=== PATIENT | male | born 1965 | race Two or more races ===

== ENCOUNTER 2023-10-20 18:41 | Emergency (ER) | payer BC ==
[~2023-10-20] VITALS: Ht 172.7 cm; Wt 98.5 kg
[2023-10-20 20:22] VITALS: BP 160/97; PULSE 93; RESP 14; O2SAT 96
[2023-10-20] MEDS ORDERED: INDO50CA82 PO (22:18)
[2023-10-20] MEDS ORDERED: COLC1TAB3 PO (22:18)
[2023-10-20] MEDS: predniSONE 20 MG TAB PO ONE (22:23)
[2023-10-20] MEDS: COLCHICINE 0.6 MG CAP PO ONE (22:24)
== END 2023-10-20 22:38 | disposition home or self-care (01) ==
LOC: ER 18:41
DX: M10.031 Idiopathic gout, right wrist (principal); I10 Essential (primary) hypertension; M19.90 Unspecified osteoarthritis, unspecified site; Z79.899 Other long term (current) drug therapy
CPT/HCPCS: 99283; J7512

== ENCOUNTER 2025-07-19 08:01 | Emergency (ER) | payer BC, OTHER ==
[~2025-07-19] VITALS: Ht 172.7 cm; Wt 86.0 kg
[~2025-07-19 08:01] MED LIST: COLC1TAB3 PO; INDO50CA82 PO
--- NOTE | 2025-07-19 08:28 | ED.PDOC ---
History of Present Illness HPI Comments A 59 YEAR OLD MALE PRESENTS TO THE ED WITH COMPLAINT OF ALLERGIC REACTION. PT STATES EARLIER THIS AM, HE TOOK PRESCRIBED AUGMENTIN FOR SKIN INFECTION. PT STATES THIS IS IS FIRST DOSE EARLIER THIS AM AT APPROX 0700. PT STATES SHORTLY AFTERWARDS, HE STARTED TO HAVE BILATERAL HAND AND FOOT SWELLING AND STARTED TO GET SHORT OF BREATH AND CALLED EMS. PT NOW IN THE ED, OTHERWISE STABLE VITALS AND NO NOTED RESPIRATORY DISTRESS. PATIENT DENIES FEVER, CHILLS, SHORTNESS OF BREATH, CHEST PAIN, ABDOMINAL PAIN, NAUSEA, VOMITING, HEADACHE, OR OTHER COMPLAINTS. NO OTHER SYMPTOMS OR MODIFYING FACTORS AT THIS TIME. PATIENT IS ALERT, ORIENTED X 4, AND HAS STEADY GAIT. Chief Complaint: Allergic Reaction Time Seen by MD: 08:25 Primary Care Provider: ASHLEIGH Reviewed Notes: Nurses Notes, Medications, Allergies Allergies: Coded Allergies: Amoxicillin (Verified Allergy, Unknown, 07/19/25) Clavulanic Acid (Verified Allergy, Unknown, 07/19/25) Home Meds Active Scripts Methylprednisolone (Medrol Dosepak) 4 Mg Devendra, 4 MG PO UD, #21 TAB UAD Prov:UGO COBB 07/19/25 Clindamycin Hcl (Clindamycin Hcl) 300 Mg Cap, 1 CAP PO TID, #30 CAP Prov:UGO COBB 07/19/25 Indomethacin (Indomethacin) 50 Mg Cap, 1 CAP PO TID PRN, #30 CAP 0 Refills Prov:KYLER KINGSLEY 10/20/23 Colchicine (Colcrys) 0.6 Mg Tab, 1 TAB PO ONCE, #1 TAB 0 Refills Prov:KYLRE KINGSLEY 10/20/23 Information Source: Patient, Emergency Med Personnel Mode of Arrival: EMS Severity: Mild Timing: Hours Duration: Since onset, Hours Prehospital treatment: None Medication Refill: For: Other (POSSIBLE ALLERGIC REACTION) Past Medical History PAST MEDICAL HISTORY: Arthritis, Gout, HTN Surgical History: Denies all surgeries Family History Family History: Unknown Social History Smoker: Non-Smoker Alcohol: Denies ETOH Use Drugs: Denies Drug Use Lives In: Home Constitutional: denies: chills, diaphoresis, fatigue, fever, malaise, sweats, weakness, others EENTM: denies: blurred vision, double vision, ear bleeding, ear discharge, ear drainage, ear pain, ear ringing, eye pain, eye redness, hearing loss, mouth pain, mouth swelling, nasal discharge, nose bleeding, nose congestion, nose pain, photophobia, tearing, throat pain, throat swelling, voice changes, others Respiratory: reports: shortness of breath (SENSATION ); denies: cough, hemoptysis, orthopnea, SOB at rest, SOB with excertion, stridor, wheezing, others Cardiovascular: denies: chest pain, dizzy spells, diaphoresis, Dyspnea on exertion, edema, irregular heart beat, left arm pain, lightheadedness, palpitations, PND, syncope, others Gastrointestinal: denies: abdomen distended, abdominal pain, blood streaked bowels, constipated, diarrhea, dysphagia, difficulty swallowing, hematemesis, melena, nausea, poor appetite, poor fluid intake, rectal bleeding, rectal pain, vomiting, others Genitourinary: denies: burning, dysuria, flank pain, frequency, hematuria, incontinence, penile discharge, penile sore, pain, testicle pain, testicle swelling, urgency, others Neurological: denies: dizziness, fainting, headache, left sided numbness, left sided weakness, numbness, paresthesia, pre-existing deficit, right sided numbness, right sided weakness, seizure, speech problems, tingling, tremors, weakness, others Musculoskeletal: denies: back pain, gout, joint pain, joint swelling, muscle pain, muscle stiffness, neck pain, others Integumetry: reports: lumps (RIGHT SIDE FACE. ); denies: bruises, change in color, change in hair/nails, dryness, laceration, lesions, rash, wounds, others Allergic/Immunocompromised: denies: Difficulty Healing, Frequent Infections, Hives, Itching, others Hematologic/Lymphatic: denies: anemia, blood clots, easy bleeding, easy bruising, swollen glands, others Endocrine: denies: excessive hunger, excessive sweating, excessive thirst, excessive urination, flushing, intolerance to cold, intolerance to heat, unexplained weight gain, unexplained weight loss, others Psychiatric: denies: anxiety, bipolar disorder, depression, hopeless, panic disorder, schizophrenia, sleepless, suicidal, others All Other Systems: Reviewed and Negative Physical Exam General Appearance: Mild Distress, Normal HEENT: Normal ENT Inspection, PERRL/EOMI, Pharyngeal Erythema (MILD UVULA SWELLING. ), Pharynx Normal, TMs Normal Neck: Full Range of Motion, Non-Tender, Normal, Normal Inspection Respiratory: Chest Non-Tender, Lungs Clear, No Accessory Muscle Use, No Respiratory Distress, Normal Breath Sounds Cardiovascular: No Edema, No JVD, No Murmur, No Gallop, Normal Peripheral Pulses, Regular Rate/Rhythm Breast Exam: Deferred Gastrointestinal: No Organomegaly, Non Tender, No Pulsatile Mass, Normal Bowel Sounds, Soft Genitalia: Deferred Pelvic: Deferred Rectal: Deferred Extremities: No calf tenderness, Normal capillary refill, Normal inspection, Normal range of motion, Non-tender, No pedal edema Musculoskeletal : Apperance: Normal Neurologic: Alert, consolidator II-XII nml as Tested, No Motor Deficits, Normal Affect, Normal Mood, No Sensory Deficits Cerebellar Function: Normal Reflexes: Normal Skin: Dry, Normal Color, Warm, Other (A SMALL PIMPLE ON RIGHT SIDE FACE WITH LOCALIZED REDNESS, NO SWELLING AND OPEN WOUND. ) Peripheral Pulses: 2+ carotid (R), 2+ carotid (L) Lymphatic: No Adenopathy Was a procedure done? Was a procedure done?: No Differential Dx Considerations may include: ALLERGIC REACTION, PIMPLE OF RIGHT SIDE FACE X-Ray, Labs, Meds, VS Vital Signs Date Time Temp Pulse Resp B/P (MAP) Pulse Ox O2 Delivery O2 Flow Rate FiO2 07/19/25 08:05 97.7 105 18 121/78 98 97.7 Current Medications Medications (Trade) Dose Ordered Sig/Deepti Route Start Time Stop Time Status Last Admin Methylprednisolone Sodium Succinate (Solu Medrol) 125 mg ONCE ONCE IM 07/19/25 08:30 07/19/25 08:31 DC 07/19/25 08:31 X-Ray, Labs, Meds, VS Comment COURSE: EXTERNAL MEDICAL RECORDS REVIEWED: [NONE] INDEPENDENT HISTORIANS: [NONE] SOCIAL DETERMINANTS OF HEALTH: [NONE] LABS ORDERED: NONE REVIEWED AND INTERPRETED RESULTS: NONE IMAGING ORDERED: NONE TREATMENTS ORDERED: PREDNISONE 125 MG IM, PROCEDURES PERFORMED: NONE CRITICAL CARE TIME: NONE I HAVE DISCUSSED THE PATIENT WITH THE ATTENDING PHYSICIAN DR. JANG AND HE AGREES WITH THE PATIENT'S PLAN OF CARE AND DISPOSITION. BASED ON HISTORY OF PRESENT ILLNESS, AND PHYSICAL EXAM, PATIENT WILL BE DISCHARGED HOME. DISCUSSED PLAN FOR DISCHARGE HOME WITH RX [CLINDAMYCIN AND MEDROL DOSE PACK]. MEDICATION WARNINGS GIVEN. SHARED DECISION MAKING: DISCUSSED WITH PATIENT THAT THEIR WORKUP WAS NORMAL. PATIENT INSTRUCTED TO FOLLOW UP WITH PRIMARY CARE PROVIDER IN 1-2 DAYS FOR RE- EVALUATION OF SYMPTOMS. PATIENT VERBALIZES UNDERSTANDING TO RETURN TO ED FOR NEW OR WORSENING SYMPTOMS OR IF FOLLOW UP WITH PCP CANNOT BE OBTAINED. PATIENT FEELS COMFORTABLE GOING HOME AT THIS TIME. ALL QUESTIONS ADDRESSED AT TIME OF DISCHARGE. Time of 1ST Reevaluation: 09:00 Reevaluation 1ST: Improved Patient Education/Counseling: Diagnosis, Treatment, Need For Follow Up Family Education/Counseling: Diagnosis, Treatment, Need For Follow Up Medical Screening: No EMC Exist At This Time SEPSIS Sepsis Screen Date sepsis recognized/suspect: Jul 19, 2025 Time Sepsis recognized/suspect: 808 Recent Procedure: No On Antibiotic Therapy: No Respiratory Rate >20: No Heart Rate >90: Yes Temp<36 C (96.8 F) or >38.3 C: No SBP <90 or MAP <65 mmHG: No New Acute Mental Status Change: No Is the patient on CPAP, BIPAP,: No Vital Signs Date Time Temp Pulse Resp B/P (MAP) Pulse Ox O2 Delivery O2 Flow Rate FiO2 07/19/25 08:05 97.7 105 18 121/78 98 97.7 Medications Medications Dose Ordered Sig/Deepti Route Start Time Stop Time Status Last Admin Dose Admin Methylprednisolone Sodium Succinate 125 mg ONCE ONCE IM 07/19/25 08:30 07/19/25 08:31 DC 07/19/25 08:31 Departure 1 Departure Time of Disposition: 09:00 Impression: Primary Impression: Allergic reaction caused by a drug Qualified Codes: T78.40XA - Allergy, unspecified, initial encounter Additional Impression: Skin pimple Disposition: HOME / SELF CARE / HOMELESS Condition: Stable Additional Instructions: INSTRUCTIONS: FOLLOW-UP WITH PCP IN 1 TO 2 DAYS. TAKE MEDICATIONS PRESCRIBED. RETURN TO ED FOR ANY NEW OR WORSENING SYMPTOMS. e-Prescriptions Methylprednisolone (Medrol Dosepak) 4 Mg Devendra 4 MG PO UD, #21 TAB UAD Prov: UGO COBB 07/19/25 Clindamycin Hcl (Clindamycin Hcl) 300 Mg Cap 1 CAP PO TID, #30 CAP Prov: UGO COBB 07/19/25 Discharged With: Self, Relative Critical Care Note Critical Care Time?: No Stability Stability form required: No Heart Score Heart Score: Heart Score Response (Comments) Value History N/A 0 EKG N/A 0 Age N/A 0 Risk Factors N/A 0 Troponin N/A 0 Total 0 I personally scribed for UGO COBB ([email or web address]) on 07/19/25 at 08:28. El ectronically submitted by Jf Gallagher ([email or web address]). UGO COBB Jul 19, 2025 08:28
[2025-07-19] MEDS ORDERED: METH4PAK PO (08:30)
[2025-07-19] MEDS ORDERED: CLIN1CAP70 PO (08:30)
[2025-07-19] MEDS: methylPREDNISolone SOD SUCC 125 MG/2 ML VL IM ONE (08:31)
[2025-07-19 08:32] VITALS: BP 121/78; PULSE 105; RESP 20; TEMP 97.7; O2SAT 98
--- NOTE | 2025-07-19 10:05 | ECG ---
[facility] Test Date: 2025-07-19 Test Time: 08:09:42 Pat Name: JENNIE WELCH Department: [facility] ED Patient ID: [id number] Room: Gender: M Herpetologist: ER : 1965 Requested By: UGO COBB Order Number: [id number] Reading MD: Ran Hensley Measurements Intervals [place] Rate: 111 P: 48 NE: 129 QRS: 59 QRSD: 109 T: 6 QT: 365 QTc: 496 Interpretive Statements Sinus tachycardia Borderline ST depression, diffuse leads Borderline prolonged QT interval Electronically Signed On 07-24-2025 10:08:12 PST by Ran Hensley Please click the below link to view image of tracing.
== END 2025-07-19 08:38 | disposition home or self-care (01) ==
LOC: EDBD 08:01 → ER 08:04
DX: L70.9 Acne, unspecified (principal); T50.905A Adverse effect of unspecified drugs, medicaments and biological substances, initial encounter; M10.00 Idiopathic gout, unspecified site; I10 Essential (primary) hypertension; M19.90 Unspecified osteoarthritis, unspecified site; Z79.899 Other long term (current) drug therapy; Z88.0 Allergy status to penicillin; Y92.89 Other specified places as the place of occurrence of the external cause
CPT/HCPCS: 93005; 96372; 99283; J2919

== ENCOUNTER 2025-07-30 10:46 | Emergency (ER) | payer OTHER ==
[~2025-07-30] VITALS: Ht 172.7 cm; Wt 85.6 kg
[~2025-07-30 10:46] MED LIST changes: +CLIN1CAP70 PO; +METH4PAK PO
--- NOTE | 2025-07-30 11:44 | ED.PDOC ---
History of Present Illness(SKN HPI Comments 59 y/o M, with PMHx of arthritis, GOUT, and HTN presents to the ED for CC of abscess. Patient states, he has had an abscess to his right zygomatic region [id number]. Patient reports, abscess to now be pimple like in appearance and erythematous to the surrounding area. Patient denies drainage to site, fever, or chills. No other symptoms or modifying factors are present at this time. Chief Complaint: Abscess Time Seen by MD: 11:50 Primary Care Provider: ASHLEIGH History of Present Illness: Nurses Notes, Medications, Allergies Allergies: Coded Allergies: Amoxicillin (Verified Allergy, Unknown, 07/19/25) Clavulanic Acid (Verified Allergy, Unknown, 07/19/25) Home Meds Active Scripts Methylprednisolone (Medrol Dosepak) 4 Mg Devendra, 4 MG PO UD, #21 TAB UAD Prov:UGO COBB 07/19/25 Clindamycin Hcl (Clindamycin Hcl) 300 Mg Cap, 1 CAP PO TID, #30 CAP Prov:UGO COBB 07/19/25 Indomethacin (Indomethacin) 50 Mg Cap, 1 CAP PO TID PRN, #30 CAP 0 Refills Prov:KYLER KINGSLEY 10/20/23 Colchicine (Colcrys) 0.6 Mg Tab, 1 TAB PO ONCE, #1 TAB 0 Refills Prov:KYLER KINGSLEY 10/20/23 Information Source: Patient Mode of Arrival: Ambulatory Severity: Moderate Timing: Months Duration: Since onset Prehospital treatment: None Location: Face Object: None Condition of Object: None Retained Foreign Body: No Wound Type: None History of: None Associated Signs and Symptoms: None Past Medical History PAST MEDICAL HISTORY: Arthritis, Gout, HTN Surgical History: Denies all surgeries Family History Family History: Unknown Social History Smoker: Non-Smoker Alcohol: Denies ETOH Use Drugs: Denies Drug Use Lives In: Home Constitutional: denies: chills, diaphoresis, fatigue, fever, malaise, sweats, weakness, others EENTM: denies: blurred vision, double vision, ear bleeding, ear discharge, ear drainage, ear pain, ear ringing, eye pain, eye redness, hearing loss, mouth pain, mouth swelling, nasal discharge, nose bleeding, nose congestion, nose pain, photophobia, tearing, throat pain, throat swelling, voice changes, others Respiratory: denies: cough, hemoptysis, orthopnea, SOB at rest, shortness of breath, SOB with excertion, stridor, wheezing, others Cardiovascular: denies: chest pain, dizzy spells, diaphoresis, Dyspnea on exertion, edema, irregular heart beat, left arm pain, lightheadedness, palpitations, PND, syncope, others Gastrointestinal: denies: abdomen distended, abdominal pain, blood streaked bowels, constipated, diarrhea, dysphagia, difficulty swallowing, hematemesis, melena, nausea, poor appetite, poor fluid intake, rectal bleeding, rectal pain, vomiting, others Genitourinary: denies: burning, dysuria, flank pain, frequency, hematuria, incontinence, penile discharge, penile sore, pain, testicle pain, testicle swelling, urgency, others Neurological: denies: dizziness, fainting, headache, left sided numbness, left sided weakness, numbness, paresthesia, pre-existing deficit, right sided numbness, right sided weakness, seizure, speech problems, tingling, tremors, weakness, others Musculoskeletal: denies: back pain, gout, joint pain, joint swelling, muscle pain, muscle stiffness, neck pain, others Integumetry: reports: others (abscess, pimple); denies: bruises, change in color, change in hair/nails, dryness, laceration, lesions, lumps, rash, wounds Allergic/Immunocompromised: denies: Difficulty Healing, Frequent Infections, Hives, Itching, others Hematologic/Lymphatic: denies: anemia, blood clots, easy bleeding, easy brui sing, swollen glands, others Endocrine: denies: excessive hunger, excessive sweating, excessive thirst, ex cessive urination, flushing, intolerance to cold, intolerance to heat, unexplained weight gain, unexplained weight loss, others Psychiatric: denies: anxiety, bipolar disorder, depression, hopeless, panic disorder, schizophrenia, sleepless, suicidal, others All Other Systems: Reviewed and Negative Physical Exam General Appearance: No Apparent Distress HEENT: Normal ENT Inspection, PERRL/EOMI, Other (Small infected vesicle to the right cheek) Neck: Full Range of Motion, Non-Tender, Normal, Normal Inspection Respiratory: Chest Non-Tender, Lungs Clear, No Accessory Muscle Use, No Respiratory Distress, Normal Breath Sounds Cardiovascular: No Edema, No JVD, No Murmur, No Gallop, Normal Peripheral Pulses, Regular Rate/Rhythm Breast Exam: Deferred Gastrointestinal: No Organomegaly, Non Tender, No Pulsatile Mass, Normal Bowel Sounds, Soft Genitalia: Deferred Pelvic: Deferred Rectal: Deferred Extremities: No calf tenderness, Normal capillary refill, Normal inspection, Normal range of motion, Non-tender, No pedal edema Neurologic: Alert, media job titles II-XII nml as Tested, No Motor Deficits, Normal Affect, Normal Mood, No Sensory Deficits Cerebellar Function: Normal Reflexes: Normal Skin: Dry, Normal Color, Warm Peripheral Pulses: 1+ carotid (R), 1+ carotid (L) Lymphatic: No Adenopathy Was a procedure done? Was a procedure done?: Yes Sedation Sedation?: No Incision and Drainage Location Right cheek Anesthetic: Lidocaine Preparation: Wound cleaner and preparer Incision and Wound: Blood, Other (Patient has a solid cyst on his cheek that need to be removed in toto by incision and removal) Informed consent obtained: No Risks/benefits/alt described: No Differential Diagnosis (INTG) Differential Diagnosis: Abrasion, Insect Envenomation Differential Diagnosis: Abscess Differential Diagnosis: Other Abscess: Abscess, Other (Instead of an abscess who has a solid lesion discolored has been there for little while and needed to be removed in toto) Differential Diagnosis: N/A X-Ray, Labs, Meds, VS Vital Signs Date Time Temp Pulse Resp B/P (MAP) Pulse Ox O2 Delivery O2 Flow Rate FiO2 07/30/25 10:47 98.2 96 15 153/103 97 98.2 Current Medications Medications (Trade) Dose Ordered Sig/Deepti Route Start Time Stop Time Status Last Admin Lidocaine HCl (Xylocaine) ONCE ONCE ID 07/30/25 12:15 07/30/25 12:16 DC 07/30/25 12:24 Neomycin/ Polymyxin/ Bacitracin (Triple Antibiotic) 1 applic ONCE ONCE TOP 07/30/25 12:15 07/30/25 12:16 DC 07/30/25 13:02 X-Ray, Labs, Meds, VS Comment This patient came in to the emergency department for abscess in his right cheek Upon incision and drainage the abscess was solid and more of large cyst The incision was done and all the cyst was removed Patient will be coming back in three days for follow up and removed in 6-7 days for the sutures Time of 1ST Reevaluation: 12:20 Reevaluation 1ST: Unchanged Time of 2ND Reevaluation: 13:27 Reevaluation 2ND: Improved Consultation: PCP, Other (Dermatology if it is not better) Patient Education/Counseling: Diagnosis, Treatment Family Education/Counseling: No Family Present SEPSIS Sepsis Screen Date sepsis recognized/suspect: Jul 30, 2025 Time Sepsis recognized/suspect: 1048 Recent Procedure: No On Antibiotic Therapy: No Respiratory Rate >20: No Heart Rate >90: No Temp<36 C (96.8 F) or >38.3 C: No SBP <90 or MAP <65 mmHG: No New Acute Mental Status Change: No Is the patient on CPAP, BIPAP,: No Physician Orders Peroxide (07/30/25 12:03) Sterile Gloves (07/30/25 12:03) Lac Tray (07/30/25 12:03) Vital Signs Date Time Temp Pulse Resp B/P (MAP) Pulse Ox O2 Delivery O2 Flow Rate FiO2 07/30/25 10:47 98.2 96 15 153/103 97 98.2 Medications Medications Dose Ordered Sig/Deepti Route Start Time Stop Time Status Last Admin Dose Admin Lidocaine HCl ONCE ONCE ID 07/30/25 12:15 07/30/25 12:16 DC 07/30/25 12:24 Neomycin/ Polymyxin/ Bacitracin 1 applic ONCE ONCE TOP 07/30/25 12:15 07/30/25 12:16 DC 07/30/25 13:02 Departure 1 Departure Time of Disposition: 13:28 Impression: Primary Impression: Skin lesion of cheek Additional Impression: Encounter for removal of skin lesion Disposition: 01 HOME / SELF CARE / HOMELESS Condition: Fair Additional Instructions: Lesion clean and dry apply Neosporin ointment once a day and with a Band-Aid twice a day If any problem like swelling inflammation redness come back to the ED e-Prescriptions Bacitracin Zinc (Bacitracin) 500 Unit/Gm Oin 500 UNIT EX DAILY for 10 Days, #30 OIN Prov: DANY ARNOLD MD 07/30/25 Cefdinir (Cefdinir) 300 Mg Cap 1 CAP PO BID for 7 Days, #14 CAP Prov: DANY ARNOLD MD 07/30/25 Discharged With: Self Critical Care Note Critical Care Time?: No Stability Stability form required: No Heart Score Heart Score: Heart Score Response (Comments) Value History N/A 0 EKG N/A 0 Age 45-64 1 Risk Factors 1 or 2 risk factors 1 Troponin N/A 0 Total 2 I personally scribed for DANY ARNOLD MD ([email or web address]) on 07/30/25 at 11:44. Electronically submitted by Ayana Hager ([employer]). I personally scribed for DANY ARNOLD MD ([email or web address]) on 07/30/25 at 11:51. Electronically submitted by Ayana Hager ([employer]). I personally scribed for DANY ARNOLD MD ([email or web address]) on 07/30/25 at 13:23. Electronically submitted by Ayana Hager ([employer]). DANY ARNOLD MD Jul 30, 2025 11:44
[2025-07-30] MEDS: LIDOCAINE 2%HCL (LOCAL ANESTH.) INJ 20ML MDV ID ONE (12:24)
[2025-07-30] MEDS: NEOMYCIN-BACITRACIN-POLYM UNITDOSE PKG TOP OINT TOP ONE (13:02)
[2025-07-30] MEDS ORDERED: CEFD300C2 PO (13:31)
[2025-07-30] MEDS ORDERED: BACI-5 EX (13:31)
[2025-07-30 14:20] VITALS: BP 171/102; TEMP 99.6
[2025-07-30 14:23] VITALS: PULSE 99; RESP 20; O2SAT 97
== END 2025-07-30 14:29 | disposition home or self-care (01) ==
LOC: ER 10:46
DX: L02.01 Cutaneous abscess of face (principal); I10 Essential (primary) hypertension; M19.90 Unspecified osteoarthritis, unspecified site; Z88.0 Allergy status to penicillin
CPT/HCPCS: 10060